=== PATIENT | female | born 1995 | race Asian ===

== ENCOUNTER 2023-11-02 22:42 | Emergency (ER) | payer MEDICAID ==
[~2023-11-02] VITALS: Ht 157.5 cm; Wt 66.7 kg
[2023-11-02 22:58] VITALS: BP 122/74; TEMP 98; O2SAT 99
[2023-11-02] MEDS ORDERED: IBUPROFEN 600 MG TABLET ONE (23:24)
[2023-11-02] MEDS: IBUPROFEN 600 MG TABLET PO ONE (23:24)
[2023-11-02] MEDS ORDERED: IBUP-1490 PO (23:52)
== END 2023-11-03 00:07 | disposition home or self-care (01) ==
LOC: ER 22:49
DX: S63.633A Sprain of interphalangeal joint of left middle finger, initial encounter (principal); W18.39XA Other fall on same level, initial encounter; Y93.89 Activity, other specified; Y92.89 Other specified places as the place of occurrence of the external cause; Y99.8 Other external cause status
CPT/HCPCS: 73140-TC

== ENCOUNTER 2024-08-02 20:13 | Emergency (ER) | payer OTHER, MEDICAID ==
[~2024-08-02] VITALS: Ht 160 cm; Wt 70.3 kg
[~2024-08-02 20:13] MED LIST: IBUP-1490 PO
[2024-08-02 21:16] VITALS: BP 133/74; TEMP 98; O2SAT 99
[2024-08-02] MEDS ORDERED: ONDA4TAB11 PO (21:30)
[2024-08-02] MEDS ORDERED: IBUP-1490 PO (21:30)
== END 2024-08-02 22:35 | disposition home or self-care (01) ==
LOC: ER 20:20
DX: S13.4XXA Sprain of ligaments of cervical spine, initial encounter (principal); R07.89 Other chest pain; R11.0 Nausea; M79.671 Pain in right foot; Z79.899 Other long term (current) drug therapy; V89.2XXA Person injured in unspecified motor-vehicle accident, traffic, initial encounter; Y93.89 Activity, other specified; Y92.488 Other paved roadways as the place of occurrence of the external cause; Y99.8 Other external cause status

== ENCOUNTER 2025-04-14 15:50 | Emergency (ER) | payer MEDICAID ==
[~2025-04-14] VITALS: Ht 165.1 cm; Wt 59.9 kg
[~2025-04-14 15:50] MED LIST changes: +ONDA4TAB11 PO
[2025-04-14 16:01] VITALS: BP 115/89; TEMP 97.9; O2SAT 99
[2025-04-14] MEDS ORDERED: IBUPROFEN 600 MG TABLET ONE (18:50)
[2025-04-14] MEDS: IBUPROFEN 600 MG TABLET PO ONE (18:53)
[2025-04-14] MEDS ORDERED: IBUP-1490 PO (19:03)
== END 2025-04-14 19:14 | disposition home or self-care (01) ==
LOC: ER 15:58
DX: S49.92XA Unspecified injury of left shoulder and upper arm, initial encounter (principal); S69.91XA Unspecified injury of right wrist, hand and finger(s), initial encounter; X50.0XXA Overexertion from strenuous movement or load, initial encounter; Y93.89 Activity, other specified; Y92.89 Other specified places as the place of occurrence of the external cause; Y99.8 Other external cause status
CPT/HCPCS: 73030-TC; 73060-TC; 73110